=== PATIENT | female | born 1990 | race Caucasian/White ===

== ENCOUNTER 2021-09-12 15:17 | Outpatient (CLI) | payer OTHER, SELFPAY ==
[2021-09-12 16:37] LABS: Basophils Percent Auto 0.3 % (0.2-1.2); Eosinophils Absolute Auto 0.1 K/mm3 (0-0.3); Eosinophils Percent Auto 1.3 % (0-4.4); Hematocrit 32.9 % (37.0-47.0); Hemoglobin 11.1 g/dL (12.0-15.0); Lymphocytes Absolute Auto 1.32 K/mm3 (0.9-3.2); Lymphocytes Percent Auto 13.5 % (18.3-44.2); Mean Corpuscular HGB Conc 33.7 g/dl (32-36); Mean Corpuscular Hemoglobin 33.7 pg (26-34); Mean Platelet Volume 8.5 fl (7.4-10.4); Monocytes Absolute Auto 0.6 K/mm3 (0.1-0.6); Neutrophils Absolute Auto 7.6 K/mm3 (1.3-6.7); Neutrophils Percent Auto 77.9 % (45.5-73.1); Platelet Count Result 218 k/mm3 (150-375); Red Blood Count 3.29 M/mm3 (4.2-5.4); White Blood Count 9.8 K/mm3 (4.5-10.0)
[2021-09-12 16:48] LABS: Glucose 1 Hour PP 50gm Dose 136 mg/dL
[2021-09-12 17:30] LABS: HIV 1/2 Ab P24 Ag Result Negative (Negative)
[2021-09-13] MEDS: RHO(D) IMMUNE GLOBULIN 300 MCG/2 ML SYRINGE IM (18:51)
== END 2021-09-12 15:18 | disposition home or self-care (01) ==
PROVIDERS: Visit Provider Obstetrics & Gynecology
DX: Z34.93 Encounter for supervision of normal pregnancy, unspecified, third trimester (principal); Z3A.00 Weeks of gestation of pregnancy not specified
CPT/HCPCS: 36415; 82947; 85025; 85461; 86703; 90384; 96372; G0432; J2790

== ENCOUNTER 2021-09-16 07:12 | Outpatient (CLI) | payer OTHER, SELFPAY ==
[2021-09-16 07:34] LABS: Glucose Fasting Gestational 85 mg/dL (>/=95)
[2021-09-16 08:55] LABS: Glucose 1 Hour Gest 127 mg/dL (>/=180)
[2021-09-16 10:11] LABS: Glucose 2 Hour Gest 113 mg/dL (>/= 155)
[2021-09-16 11:06] LABS: Glucose 3 Hour Gest 109 mg/dL (>/=140)
== END 2021-09-16 07:13 | disposition home or self-care (01) ==
LOC: ANHLAB 07:13
PROVIDERS: Visit Provider Obstetrics & Gynecology
DX: R73.09 Other abnormal glucose (principal)
CPT/HCPCS: 36415; 82951; 82952

== ENCOUNTER 2021-11-07 07:02 | Outpatient (CLI) | payer OTHER, SELFPAY ==
[2021-11-07 07:28] LABS: Basophils Absolute Auto 0.1 K/mm3 (0.0-0.1); Basophils Percent Auto 0.6 % (0.2-1.2); Eosinophils Absolute Auto 0.1 K/mm3 (0-0.3); Eosinophils Percent Auto 1.4 % (0-4.4); Hematocrit 32.4 % (37.0-47.0); Hemoglobin 11.2 g/dL (12.0-15.0); Immature Granulocyte Absolute 0.28 K/mm3 (0.00-0.031); Lymphocytes Absolute Auto 1.53 K/mm3 (0.9-3.2); Lymphocytes Percent Auto 16.4 % (18.3-44.2); Mean Corpuscular HGB Conc 34.6 g/dl (32-36); Mean Corpuscular Hemoglobin 33.9 pg (26-34); Mean Corpuscular Volume 98.2 fl (80-100); Mean Platelet Volume 8.8 fl (7.4-10.4); Monocytes Absolute Auto 0.8 K/mm3 (0.1-0.6); Monocytes Percent Auto 8.4 % (2.6-8.5); Neutrophils Absolute Auto 6.5 K/mm3 (1.3-6.7); Neutrophils Percent Auto 70.2 % (45.5-73.1); Platelet Count Result 163 k/mm3 (150-375); White Blood Count 9.3 K/mm3 (4.5-10.0)
[2021-11-07 07:39] LABS: Creatinine Urine 97.5 mg/dL; Total Protein Urine Random 11 mg/dL
[2021-11-07 07:43] LABS: Alanine Aminotransferase 12 U/L (6-35); Albumin Level 3.3 g/dL (3.5-5.1); Alkaline Phosphatase 117 U/L (38-126); Anion Gap 4 mmol/L (8-16); Aspartate Amino Transferase 22 U/L (14-36); Bilirubin,Total 0.4 mg/dL (0.2-1.3); Blood Urea Nitrogen 6 mg/dL (7-17); Carbon Dioxide 25 mmol/L (22-30); Chloride 106 mmol/L (98-107); Estimated Glomerular Filt Rate > 60; Glucose 83 mg/dL (65-110); Lactate Dehydrogenase 388 U/L (313-618); Potassium 3.8 mmol/L (3.4-5.0); Sodium 135 mmol/L (137-145); Uric Acid 3.9 mg/dL (2.5-7.5)
== END 2021-11-07 07:03 | disposition home or self-care (01) ==
LOC: ANHLAB 07:04
PROVIDERS: Visit Provider Obstetrics & Gynecology
DX: Z34.90 Encounter for supervision of normal pregnancy, unspecified, unspecified trimester (principal); H53.9 Unspecified visual disturbance; Z3A.00 Weeks of gestation of pregnancy not specified
CPT/HCPCS: 36415; 80053; 81050; 82570; 83615; 84156; 84550; 85025

== ENCOUNTER 2021-11-15 12:37 | Outpatient (CLI) | payer OTHER, SELFPAY ==
--- NOTE | ~2021-11-15 | US_ITS ---
EXAMINATION: US OB follow up DATE: 11/15/2021 13:09 INDICATION: Uterine size, date discrepancy. TECHNIQUE: Real-time ultrasound of the pelvis was performed. COMPARISON: 09/19/2021. FINDINGS: There is a single living fetus in vertex presentation. The placenta is anterior. heart rate is 128 beats per minute (bpm). cardiac activity and movement are noted. The amniotic fluid index is 8.9 cm (5th percentile 7.5 cm, 95th percentile 24.4 cm). The following biometric data were obtained: Biparietal diameter (BPD): 9.8 cm; head circumference (HC): 34.9 cm; abdominal circumference (AC): 37 .0 cm; femur length (FL): 7.6 cm. Estimated weight is 4091 g +/- 613.7 g, which correlates with the 97 percentile when 12/03/2021 i s used as estimated date of delivery. As single measurements, these parameters are each equal to the following estimated gestational ages w ith ranges of +/- 2 standard deviations: BPD: 40 weeks 1 days ( 37 weeks 0 days - 43 weeks 3 days). HC: 40 weeks 4 days ( 37 weeks 6 days - 43 weeks 2 days). AC: 41 weeks 0 days ( 38 weeks 0 days - 44 weeks 0 days). FL: 39 weeks 0 days ( 35 weeks 6 days - 42 weeks 1 days). estimated gestational age based solely on measurements from this exam is 40 weeks 1 days +/- 2 weeks 6 days. Two week discrepancy between AC and FL, FL/AC is 20.60 with a range of 20-24. Greater than one week d iscrepancy between AC and the HC and BPD measurements. FL/HC is 21.8 with a range of 20.8-22.6. FL/BP D is 77.8, range not given. IMPRESSION: 1. Single living fetus in vertex presentation. 2. Estimated weight 4091 g, +/- 613.7 g, which correlates with the 97th percentile when is used as an estimated date of delivery. 3. Two week discrepancy between AC and FL (FL measuring small), FL/AC is 20.60 with a range of 20-24. FL/HC ratio also within normal range. Reviewed, dictated and finalized at location K. IMPRESSION: 1. Single living fetus in vertex presentation. 2. Estimated weight 4091 g, +/- 613.7 g, which correlates with the 97th p ercentile when 12/03/2021 is used as an estimated date of delivery. 3. Two week discrepancy between AC and FL (FL measuring small), FL/AC is 20.60 with a range of 20-24. FL/HC ratio also within normal range.
== END 2021-11-15 12:38 | disposition home or self-care (01) ==
PROVIDERS: PCP Registered Nurse; Visit Provider Obstetrics & Gynecology
DX: O26.843 Uterine size-date discrepancy, third trimester (principal); Z3A.40 40 weeks gestation of pregnancy
CPT/HCPCS: 76816

== ENCOUNTER 2021-11-19 09:11 | Inpatient (IN) | payer OTHER, SELFPAY ==
[2021-11-19] VITALS (150 sets, daily range): BP systolic 107–140; BP diastolic 57–94; PULSE 61–109; TEMP 36.4–37.1; O2SAT 99–100; BMI 24.9
[2021-11-19 10:50] LABS: Basophils Percent Auto 0.4 % (0.2-1.2); Eosinophils Percent Auto 0.3 % (0-4.4); Hematocrit 34.4 % (37.0-47.0); Hemoglobin 11.5 g/dL (12.0-15.0); Immature Granulocyte Absolute 0.16 K/mm3 (0.00-0.031); Immature Granulocyte Percent A 1.5 % (0-0.5); Lymphocytes Absolute Auto 1.09 K/mm3 (0.9-3.2); Lymphocytes Percent Auto 10.3 % (18.3-44.2); Mean Corpuscular HGB Conc 33.4 g/dl (32-36); Mean Corpuscular Hemoglobin 33.2 pg (26-34); Mean Corpuscular Volume 99.4 fl (80-100); Monocytes Absolute Auto 0.6 K/mm3 (0.1-0.6); Monocytes Percent Auto 5.9 % (2.6-8.5); Neutrophils Absolute Auto 8.6 K/mm3 (1.3-6.7); Neutrophils Percent Auto 81.6 % (45.5-73.1); Platelet Count Result 156 k/mm3 (150-375); Red Blood Count 3.46 M/mm3 (4.2-5.4); White Blood Count 10.6 K/mm3 (4.5-10.0)
--- NOTE | 2021-11-19 10:52 | LDADM ---
This patient, Mimi Randall, was admitted to Labor/Delivery/Recovery 108 on 11/19/21 at 09:11. Plans for labor, pain management and were discussed with patient. Patient/family oriented to hospital policies and general routines including ID bracelet, bed and alarms, visiting hours, pain management, procedures, bathroom and other care routines, personal items, smoking policy, room service/diet and guest tray routines, infant security routines, and visiting hours. Patient/Family are encouraged to report perceived risks to care and to ask questions if they do not understand what they are told or what they should do. See OBIX for further documentation.
--- NOTE | 2021-11-19 11:01 | WPDOBADMIT ---
Obstetrics - Admit Note Admission Note: record reviewed. No pertinent additions to the history and/or any subsequent changes in the physical findings that are not consistent with the expected course of the were found. Additions to the history and/or subsequent changes in the physical findings follow. None.Here with SROM not in labor. Cervix per RN is 3/50/-2. recalled last delivery being difficult and thought there was a shoulder dystocia. Upon further discussion, the head was not delivered when the father was concerned. Prior 8#12 oz delivery and patient states she pushed about 30 minutes. U/s done 4 days ago showed EFW at 4091g (9#)+/- 650 g. Discussed delivery with couple and will plan to proceed with labor. Will augment if not in labor by 6 hours. Plans epidural. FHTs category I
[2021-11-19] MEDS: LACTATED RINGERS 1,000 ML 125 ML IV CONT ×3 (13:25→23:49)
[2021-11-19] MEDS: OXYTOCIN 30 UNITS/NS 500 ML 30 UNITS/500 ML BAG IV CONT (13:26)
--- NOTE | 2021-11-19 16:30 | WPDANESEPP ---
Anes - Eval Pre Procedure Procedure: labor epidural Date/Time: 11/19/21 16:30 Preop Diagnosis: labor pain Pre Op Diagnosis: SROM Patient Data Age: 30 Gender: F Height: 1.68 m Weight: 70 kg Last Vital Signs Temp 36.4 C 11/19/21 14:00 Pulse 81 11/19/21 16:00 BP 128/87 11/19/21 16:00 O2 Del Method Room Air 11/19/21 10:45 Allergies Allergy/AdvReac Type Severity Reaction Status Date / Time No Known Allergies Allergy Unknown Verified 08/18/21 14:48 Home Medications Medication Instructions Recorded Confirmed Type aspirin 81 mg tablet,delayed 81 mg PO DAILY #90 tabs 06/14/21 11/19/21 Rx release (Adult Low Dose Aspirin) prenat.vits,debra,jjx-[id number]-phppq 1 tablet PO DAILY 06/14/21 11/19/21 History ferrous sulfate 325 mg (65 mg 325 mg PO DAILY 11/19/21 11/19/21 History iron) tablet Laboratory Tests 11/19/21 11/19/21 11/19/21 10:35 10:35 10:35 WBC 10.6 K/mm3 H K/mm3 (4.5-10.0) RBC 3.46 M/mm3 L M/mm3 (4.2-5.4) Hgb 11.5 g/dL L g/dL (12.0-15.0) Hct 34.4 % L % (37.0-47.0) MCV 99.4 fl fl (80-100) MCH 33.2 pg pg (26-34) MCHC 33.4 g/dl g/dl (32-36) RDW 13.0 % % (11.5-14.5) Plt Count 156 k/mm3 k/mm3 (150-375) MPV 9.0 fl fl (7.4-10.4) Immature Gran % (Auto) 1.5 % H % (0-0.5) Neut % (Auto) 81.6 % H % (45.5-73.1) Lymph % (Auto) 10.3 % L % (18.3-44.2) [place] % (Auto) 5.9 % % (2.6-8.5) Eos % (Auto) 0.3 % % (0-4.4) Baso % (Auto) 0.4 % % (0.2-1.2) Lymph # (Auto) 1.09 K/mm3 K/mm3 (0.9-3.2) [place] # (Auto) 0.6 K/mm3 K/mm3 (0.1-0.6) Eos # (Auto) 0.0 K/mm3 K/mm3 (0-0.3) Baso # (Auto) 0.0 K/mm3 K/mm3 (0.0-0.1) Abs Immat Gran (auto) 0.16 K/mm3 H K/mm3 (0.00-0.031) Absolute Neuts (auto) 8.6 K/mm3 H K/mm3 (1.3-6.7) Absolute Nucleated RBC 0.0 K/mm3 K/mm3 (0.0-0.012) Nucleated RBC % 0.0 % % (0.0-0.2) RPR Pending Blood Type A Negative Antibody Screen Positive Antibody Identification Pending Antigen Identification Pending DENNIS, IgG Interpret Not Performed DENNIS, Poly Interpret Negative DENNIS, Complement Interp Not Performed Patient hx anesthesia problems: none Family hx anesthesia problems: none Results Review: All pre-operative results and documents have been reviewed as part of the pre-operative evaluation. FORMERLY [facility] Past Medical History Medical History Hypertension affecting Social History Social History Smoking status: Never smoker Alcohol intake: never Substance use: never Gender identity (if verbalized by the patient): Female Sexual Orientation (if Verbalized by the Patient): Straight or Heterosexual Spiritual care concerns: No Exam Day of Procedure 11/19/21 16:30 Patient weight: normal Lungs: normal air movement Neurological: alert and oriented
[2021-11-20] VITALS (18 sets, daily range): BP systolic 97–133; BP diastolic 69–90; PULSE 77–97; RESP 16–18; TEMP 36.5–37.4; O2SAT 100
--- NOTE | 2021-11-20 00:22 | PM.OBPRVD ---
OB - Delivery Note Procedure Delivery date: 11/20/21 Procedure: Delivery augmentation: Pitocin Delivery monitor: External FHT and External Uterine Route of delivery: Laceration Description: None Specimen: No Quantitative Blood Loss (ml): 100 Anesthesia type: Epidural Disposition: Floor Narrative: In the vagina, to right side, there is a 3 cm dilated smooth lined canal approximately 5 cm deep. Does not communicate with main part of vagina and cones down and does not appear to be open at the end. It has the appearance of a blind ended vaginal septum. [place] Baby Date of : 11/20/21 Weeks of gestation at delivery: 37 gender: Male Weight (pounds): 8 Weight (ounces): 8 presentation: vertex position: Right Occiput Anterior Placenta delivery description: Spontaneous Cord Vessel Description: 3 Vessels score one minute: 9 score five minutes: 9
[2021-11-20] MEDS: OXYTOCIN 30 UNITS/NS 500 ML 30 UNITS/500 ML BAG 125 UNITS IV CONT (00:49)
[2021-11-20] MEDS: WITCH HAZEL 40 PADS 1 PAD TOPICAL (02:38)
[2021-11-20] MEDS: BENZOCAINE 20% AER SPR (*SP) 56 GM CAN 1 SPRAY TOPICAL (02:38)
--- NOTE | 2021-11-20 02:55 | PC.NURSE ---
Patient transferred to post room #279 per wheelchair from labor and delivery. Support person present. Oriented to unit, room, information board, rooming in, admission packet and security measures. Patient verbalizes understanding.
[2021-11-20] MEDS: IBUPROFEN 600 MG TABLET PO ×3 (04:49→19:45)
[2021-11-21 00:35] VITALS: BP 111/72; PULSE 79; RESP 16; TEMP 37.4; O2SAT 100
[2021-11-21 05:19] LABS: Hematocrit 34.2 % (37.0-47.0); Hemoglobin 11.3 g/dL (12.0-15.0)
--- NOTE | 2021-11-21 07:32 | PM.OBPNVD ---
OB - PN: Subj Subjective Date/time seen: 11/21/21 07:32 Narrative: PPD#2 Mimi reports doing well today. Her bleeding is light. Her pain is controlled. She is tolerating regular diet, voiding, passing gas, and ambulating without issues. She is breast feeding. She would like her son circumcised. She would like to go home today. OB - PN: Obj Data Labs CBC & Chem 7: 11/21/21 04:35 Labs: Laboratory Results - last 24 hr 11/21/21 04:35 Hgb 11.3 L Hct 34.2 L OB - PN A/P Assessment and Plan (1) Normal vaginal delivery: Code(s): O80 - Encounter for full-term uncomplicated delivery Status: Acute (2) Vaginal septum: Code(s): Q52.10 - Doubling of vagina, unspecified Status: Acute Plan day: 2 Plan: routine care and discharge home Comments: - Pelvic rest; take meds as prescribed - ER return precautions: fever, n/v/abd pain, bleeding, HTN Time Spent With Patient Time: Total time spent is greater than 50% in coordination of care (as documented) at patient's floor/unit and/or counseling patient: Review of Systems Constitutional: Constitutional: Denies chills, Denies fever(s) and Denies headache(s) Eyes: Eyes: Denies change in vision ENT: Denies dizziness and Denies headache(s) Cardiovascular: Cardiovascular: Denies chest pain, Denies palpitations and Denies dyspnea Respiratory: Respiratory: Denies cough and Denies dyspnea Gastrointestinal: Gastrointestinal: Denies nausea and Denies vomiting Neurologic: Denies dizziness and Denies headache(s) Endocrine: Endocrine: Denies palpitations Exam Const: General: cooperative, comfortable and no acute distress Orientation/consciousness: patient oriented x3 Resp: Effort & Inspection: normal respiratory effort Auscultation: clear to auscultation bilaterally Cardio: Rate: regular rate GI: Inspection: non-distended GI Palp: No abdominal tenderness and Yes Soft to palpation Auscultation: normal bowel sounds : Other: fundus firm Skin: General skin exam: normal color Neuro: General: patient oriented x3 Extrem: General: normal to inspection Psych: Appearance: grossly normal Affect: normal affect Attitude: cooperative
[2021-11-21 08:00] VITALS: BP 124/78; PULSE 91; RESP 18; TEMP 37; O2SAT 100
--- NOTE | 2021-11-21 09:17 | PC.NURSE ---
[id number] Introductions were made, then consulted with patient to assess needs related to . Mother with no previous history led the conversation with her experience feeding her infant so far. Mother works well with her . Encouraged understanding of the benefits of skin to skin (unwrapping and placing vertically on her chest), responsive feeding and how to watch for early feeding signs, frequency of feeding on demand about every 8-12 times in 24 hours (every 2-3 hours), milk production, duration of feeding, signs of adequate intake/output and how to record on the feeding sheet. Reviewed positioning and ear, shoulder, hip alignment, supporting the breast, asymmetrical latch (off-center), and leading with the chin with a big open side gape. latched optimally to the right breast in cross cradle position. Education given to mother of how to visualize suck/swallow ratios and drinking at the breast. Infant was able to maintain latch without discomfort to mother. Nipple care reviewed with optimal latch and good positioning. self-detached after 10 min, then was offered the left breast in cross cradle position. Infant self-detached after 12 min. Nipples were not misshaped and mother denied any pain with . Reminding mother of comfort measures of healing with a warm and wet washcloth for comfort for engorgement and how to prevent it, to rinse breast, then leave open to air-dry as needed. Reviewed good handwashing when or touching the breast/nipples to prevent infection. has had appropriate feedings in the last 24 hours meets the outcomes for weight, output and jaundice at this time. Mother states she is confident to continue effectively her at home, when to call for assistance and denies any additional assistance or education at this time. Reinforced understanding of milk production, transition of milk, signs of adequate intake, prevention/relief of engorgement, responsive after visualizing feeding cues, the different methods of stimulating to breastfeed 2-3 hours after the start of the last feeding, community resources, medication information reviewed per [employer] and when to call a provider using the resource of the mom and baby guide/[facility] website. Resources used to facilitate learning were used with the mom and baby guide. Mother voiced understanding of responsive feedings, stimulating with skin to skin, hand expressed colostrum, touch, talking to to encourage if it has been 2 -3 hours since the start of the last , to call if does not latch or there is discomfort with . Reported to the primary RN.
[2021-11-21] MEDS: IBUPROFEN 600 MG TABLET PO (10:08)
[2021-11-21] MEDS: MULTIVIT/MIN/PREN/FOL AC/IRON TABLET 1 TAB PO (10:08)
[2021-11-21 14:40] LABS: Rapid Plasma Reagin Non-Reactive (NonReactive)
--- NOTE | 2021-11-23 07:45 | PM.OBDSVD ---
DS: Admitting Diagnosis Discharge Date 11/21/21 Admitting Diagnosis Rupture of membranes Labor DS: Discharge Diagnosis Discharge Diagnosis (1) Normal vaginal delivery: Code(s): O80 - Encounter for full-term uncomplicated delivery Status: Acute (2) Vaginal septum: Code(s): Q52.10 - Doubling of vagina, unspecified Status: Acute OB - DS: Summary OB Procedures : Ultrasound OB Procedures Intrapartum: Spontaneous Vag Delivery OB Procedures: : None Peripartum Data Delivery Method: Natural Vaginal 1: Gender: Male Disposition of : home Status at Discharge Functional status at discharge: independent ambulation Overall status at discharge: patient is back to baseline Time Spent with Patient Time attestation: Total time spent providing and/or coordinating discharge services: Time spent: Less than 30 minutes Exam Const: General: cooperative, comfortable and no acute distress Orientation/consciousness: patient oriented x3 Resp: Effort & Inspection: normal respiratory effort Auscultation: clear to auscultation bilaterally Cardio: Rate: regular rate GI: Inspection: non-distended GI Palp: No abdominal tenderness and Yes Soft to palpation Auscultation: normal bowel sounds : Other: fundus firm Skin: General skin exam: normal color Neuro: General: patient oriented x3 Extrem: General: normal to inspection Psych: Appearance: grossly normal Affect: normal affect Attitude: cooperative Discharge Plan Discharge Attending physician on discharge: Coral Gilbert Consulting providers: Tanya Randall Discharging Clinician: Coral Gilbert Anticipated Discharge Date/Time: 11/21/21 11:00 Patient Disposition: Home, Self-Care Activity: pelvic rest Diet: regular Discharge Instructions: Education: Mom and Baby Guide Given to: Mother Follow-Up: Call your delivering provider's office for an appointment to be seen in: 4 Weeks Mom and baby should come to the [facility] for the follow-up appointment. Appointment Date/Time: November 23, 2021 at 11:00 am What to expect at your follow-up visit: Physical Assessment Call [phone] if you are unable to keep your appointment time. BREAST CARE: * Wear a snug supportive bra. * For engorgement discomfort: Breast Feeding: * Apply warm moist washcloths * Express milk as needed to relieve engorgement * Wear loose clothing * For sore nipples: * Identify correct latch-on * Apply warm moist washcloths before and after nursing * Air dry nipples after nursing * May apply [place] cream to nipples PERINEAL CARE: * Until bleeding stops, use your luiz bottle after urinating * Change your pad frequently throughout the day * You may take sitz baths several times a day (fill your bathtub with warm water and soak for 20 minutes.) Do NOT bathe in the water * No tub baths until seen by your physician - You may shower ACTIVITY: * Rest as much as possible. * Do not exercise or lift anything heavier than your baby (such as laundry or other children.) * Avoid stairs or driving as much as possible. * Do not put anything into the vagina. No douching, tampons, or sexual activity until seen by physician. NOTIFY PHYSICIAN IF YOU HAVE ANY QUESTIONS OR IF ANY OF THE FOLLOWING SYMPTOMS OCCUR: * If your perineum becomes red, swollen, or more painful than what you have experienced in the hospital. * If your vaginal bleeding becomes foul smelling. * If your vaginal bleeding becomes more heavy than a period or if your bleeding changes from pink to bright red. However, you may pass an occasional walnut-sized clot once or twice for the first week . * If you experience a sharp, shooting pain in you calves. * If you discover a hard, reddened area on your breast or if you experience flu-like symptoms. DIET: * Eat regular,
[2021-11-23 10:58] VITALS: BP 125/87; PULSE 88; RESP 20; TEMP 36.9; O2SAT 100
== END 2021-11-21 11:45 | disposition home or self-care (01) | DRG 560 ==
LOC: ANHLDR 09:44 → ANHOB2 11-20 03:14
PROVIDERS: Admitting Provider Obstetrics & Gynecology Gynecology; PCP Registered Nurse; Visit Provider Obstetrics & Gynecology
DX: O34.63 Maternal care for abnormality of vagina, third trimester (principal); Z37.0 Single live birth; Z3A.38 38 weeks gestation of pregnancy
CPT/HCPCS: 36415; 84112; 85014; 85018; 85025; 86592; 86850; 86880; 86900; 86901; 86902; A9270; J2590; J2795; J7120

== ENCOUNTER 2022-02-27 01:34 | Day surgery (SDC) | payer OTHER, SELFPAY ==
[2022-02-21 09:29] VITALS: BMI 21.2
--- NOTE | 2022-02-21 09:38 | SUR.PREOP ---
Report to the Outpatient Waiting Room, entrance under the green pavilion located off [facility], at time 1000 on date 02/27/22. OR Time: 1200. Time changes happen often and if your time is changed the preop area will call you the afternoon before. - You and your visitor will be asked to self-screen and do not enter if you have any COVID symptoms. - Only one visitor and NO children visitors are allowed at this time. - The patient visitor is requested to leave or wait in car when not with patient due to restrictions. - A mask is required within the hospital. Patients may have clear liquids (water, carbonated beverages, clear teas, apple juice) until 3 hours prior to surgery with a maximum of 20 ounces. - No food from midnight until time of surgery no fluids after - Infants may have breast milk until 4 hours before surgery, formula 6 hours prior to surgery. - Children will be allowed to drink immediately following surgery. If applicable, please bring a bottle or sippy cup to assist with drinking. Juice, water, soda, and popsicles are readily available. For infants on formula, please bring formula the day of surgery. Pacifiers are allowed. Take the following medications with a SIP of water the morning of surgery: n/a Medications to discontinue per physician prenatal vitamin for 3 days prior Date to take last dose Please no make-up, nail croatian, hairspray, perfume, deodorant, or body powder the day of surgery. No jewelry (including any body piercings) or valuables the day of surgery, leave them at home. Please take a shower or bath the night before, or the morning of, surgery with an antibacterial soap. Wear comfortable, loose fitting clothing. Children are encouraged to wear pajamas. use Hibiclens the morning of procedure as directed - Jewelry must be removed prior to entering the operating room. Rings and piercings that are not removed may be cut off. - The hospital will not accept responsibility for valuables. - Please leave all valuables, including medications, at home the day of surgery. If you are going home after surgery, a licensed helper/driver must drive you home. - NO public transportation without another adult. - We recommend that an adult stay with you for 24 hours following discharge. - We also recommend that you do not drive, make important decision, drink alcoholic beverages, or take any drugs that were not prescribed by your health care provider for at least 24 hours after your discharge time. For Pediatric surgeries, we recommend two adults accompany the child home (only one inside the building at this time). Follow any additional instructions given to you from your surgeon. If you or anyone in your household have experienced Covid symptoms in the past week, please notify your surgeon or the nurse liaison at the phone number below for possible testing. Telephone instructions given to patient and asked if any additional questions and then verbalized understanding. Patient advised to call surgeon office or pre surgery nurse liaison [phone] if any additional questions.
--- NOTE | 2022-02-26 19:12 | PM.IMHP ---
H&P: HPI History of Present Illness Date/Time: 02/26/22 19:12 Chief Complaint: desires sterilization Narrative: Mimi is a 31yo [id number] who presents for scheduled surgery. She had a on 11/20/21. She desires to proceed with permanent sterilization. She [place] on 09[place]15/21. She also has an umbilical hernia that will be repaired by Dr. Godfrey. Review of Systems Review of Systems: All systems reviewed & are unremarkable except as noted in HPI and below PMFSH Past Medical History Medical History Hypertension affecting Social History Social History Smoking status: Never smoker Alcohol intake: never Substance use: never Gender identity (if verbalized by the patient): Female Sexual Orientation (if Verbalized by the Patient): Straight or Heterosexual Spiritual care concerns: No Meds Home Medications and Allergies Home Medications Medication Instructions Recorded Confirmed Type prenat.vits,debra,cly-rrhb-nrkfc 1 tablet PO DAILY 06/14/21 02/21/22 History ferrous sulfate 325 mg (65 mg 325 mg PO DAILY 11/19/21 02/21/22 History iron) tablet Allergies Allergy/AdvReac Type Severity Reaction Status Date / Time No Known Allergies Allergy Unknown Verified 01/20/22 08:16 Exam Const: General: cooperative, healthy appearing, comfortable and no acute distress Resp: Effort & Inspection: normal respiratory effort Cardio: Rate: regular rate GI: Inspection: normal to inspection GI Palp: No abdominal tenderness and Yes Soft to palpation : Other: deferred to OR Skin: General skin exam: normal color Neuro: General: patient oriented x3 Extrem: General: normal to inspection Psych: Appearance: grossly normal Affect: normal affect Attitude: cooperative Assessment and Plan Assessment and plan (1) Encounter for sterilization: Code(s): Z30.2 - Encounter for sterilization Status: Acute (2) Umbilical hernia: Code(s): K42.9 - Umbilical hernia without obstruction or gangrene Status: Acute Plan - All BC options discussed; pt desires to proceed with permanent sterilization via laparoscopic bilateral tubal ligation - risks and benefits explained in detail - Dr. Godfrey will then perform an umbilical hernia repair; abx ppx per his recommendations
[2022-02-27] VITALS (8 sets, daily range): BP systolic 98–128; BP diastolic 59–84; PULSE 57–84; RESP 10–16; TEMP 36.6–36.7; O2SAT 99–100
[2022-02-27] MEDS: LACTATED RINGERS 1,000 ML 30 ML IV CONT (10:48)
[2022-02-27] MEDS: ACETAMINOPHEN 500 MG TABLET 1000 MG PO (10:50)
[2022-02-27] MEDS: KETOROLAC 15 MG/ML VIAL (*BKC) IV PUSH (10:50)
--- NOTE | 2022-02-27 11:35 | WPDHPUPDATE1 ---
History and Physical Update Update Date/Time: 02/27/22 11:35 History and Physical has been reviewed, including an updated exam of the patient. There are NO changes in the patient's condition. Risks, benefits, and alternatives have been discussed and questions answered. Patient agrees to proceed with procedure.
--- NOTE | 2022-02-27 11:43 | PM.IMHP ---
H&P: HPI History of Present Illness Date/Time: 02/27/22 11:43 Chief Complaint: Umbilical hernia Narrative: 31 yo woman presents for umbilical hernia repair and tubal ligation. She reports no changes since last seen in office. Review of Systems Review of Systems: All systems reviewed & are unremarkable except as noted in HPI and below Constitutional: Constitutional: Denies chills, Denies fever(s), Denies headache(s) and Denies weight loss Eyes: Eyes: Denies change in vision ENT: Denies dizziness, Denies headache(s), Denies neck mass and Denies throat swelling Cardiovascular: Cardiovascular: Denies chest pain, Denies lightheadedness and Denies dyspnea Respiratory: Respiratory: Denies cough, Denies dyspnea and Denies wheezing Gastrointestinal: Gastrointestinal: Denies abdominal pain, Denies change in bowel habits, Denies nausea and Denies vomiting Genitourinary: Genitourinary: Denies hematuria and Denies dysuria Musculoskeletal: Musculoskeletal: Reports as per HPI Integumentary/Breasts: Skin/Breast: Reports as per HPI Neurologic: Denies dizziness and Denies headache(s) Allergic/Immunologic: Allergic/Immunologic: Denies throat swelling and Denies wheezing [facility] Past Medical History Medical History Hypertension affecting Social History Social History Smoking status: Never smoker Alcohol intake: never Substance use: never Living arrangements: with family Gender identity (if verbalized by the patient): Female Sexual Orientation (if Verbalized by the Patient): Straight or Heterosexual Spiritual care concerns: No Meds Home Medications and Allergies Home Medications Medication Instructions Recorded Confirmed Type prenat.vits,debra,qzo-twzo-vsucf 1 tablet PO DAILY 06/14/21 02/27/22 History ferrous sulfate 325 mg (65 mg 325 mg PO DAILY 11/19/21 02/27/22 History iron) tablet acetaminophen 500 mg tablet 1,000 mg PO Q8H PRN pain #60 tabs 02/27/22 Rx docusate sodium 100 mg capsule 100 mg PO BID #40 caps 02/27/22 Rx (Colace) ibuprofen 800 mg tablet 800 mg PO TID #30 tabs 02/27/22 Rx oxycodone 5 mg tablet 5 mg PO Q4H PRN pain 3 days #15 02/27/22 Rx tabs Allergies Allergy/AdvReac Type Severity Reaction Status Date / Time No Known Allergies Allergy Unknown Verified 02/27/22 10:38 Vital Signs Vital Signs - 24 hr 02/27/22 10:28 Temperature 36.7 C Pulse Rate 84 Respiratory Rate 16 Blood Pressure 115/64 Pulse Oximetry 100 Oxygen Delivery Room Air Exam Const: General: no acute distress and alert Orientation/consciousness: patient oriented x3 HENMT: Head: normocephalic and atraumatic Ears: hearing grossly normal bilaterally General nose exam: Normal nares present Mouth: Yes Normal oral and palatal mucosa present Eyes: Periorbital: periorbital findings normal Sclera: sclerae normal EOM: EOMs intact bilaterally Neck: Neck: normal visual inspection, no lymphadenopathy and trachea midline Chest: Chest palpation & inspection: normal inspection of the chest Resp: Effort & Inspection: normal respiratory effort Auscultation: clear to auscultation bilaterally Cardio: Jugular venous distension: no JVD Rate: regular rate Rhythm: regular rhythm Heart sounds: S1 normal heart sound present and S2 normal heart sound present Peripheral pulses: Peripheral pulses 2+ throughout GI: Inspection: normal to inspection GI Palp: Yes Soft to palpation, No Tenderness to palpation present (GI), No Guarding due to palpation present (GI), Yes Hernia present (umbilical hernia) and No Rebound tenderness present Percussion: Yes normal to percussion Auscultation: normal bowel sounds : General: Yes no CVA tenderness Back/Spine/Pelvis: Back: no CVA tenderness Neuro: General: patient oriented x3, no focal motor deficits and CN's II-XI intact bilaterally Cognition (N
--- NOTE | 2022-02-27 11:47 | WPDHPUPDATE1 ---
History and Physical Update Update Date/Time: 02/27/22 11:47 History and Physical has been reviewed, including an updated exam of the patient. There are NO changes in the patient's condition. Risks, benefits, and alternatives have been discussed and questions answered. Patient agrees to proceed with procedure.
--- NOTE | 2022-02-27 11:54 | WPDANESEPPF ---
Anes - Initial Pre Proc Eval Procedure: Operation Date: 02/27/22 12:00 Proposed Procedures p Umbilical Hernia Repair with Possible Mesh - Kip Godfrey DO s Laparoscopic Bilateral Tubal Ligation - Coral Gilbert MD Date/Time: 02/27/22 11:54 Surgeon: Kip Godfrey DO Pre Op Diagnosis: Umb Hernia, sterilization Patient Data Age: 31 Gender: F Height: 1.65 m Weight: 58.9 kg Last Vital Signs Temp 36.7 C 02/27/22 10:28 Pulse 84 02/27/22 10:28 Resp 16 02/27/22 10:28 BP 115/64 02/27/22 10:28 Pulse Ox 100 02/27/22 10:28 O2 Del Method Room Air 02/27/22 10:28 Allergies Allergy/AdvReac Type Severity Reaction Status Date / Time No Known Allergies Allergy Unknown Verified 02/27/22 10:38 Home Medications Medication Instructions Recorded Confirmed Type prenat.vits,debra,edj-dxbb-urjqm 1 tablet PO DAILY 06/14/21 02/27/22 History ferrous sulfate 325 mg (65 mg 325 mg PO DAILY 11/19/21 02/27/22 History iron) tablet acetaminophen 500 mg tablet 1,000 mg PO Q8H PRN pain #60 tabs 02/27/22 Rx docusate sodium 100 mg capsule 100 mg PO BID #40 caps 02/27/22 Rx (Colace) ibuprofen 800 mg tablet 800 mg PO TID #30 tabs 02/27/22 Rx oxycodone 5 mg tablet 5 mg PO Q4H PRN pain 3 days #15 02/27/22 Rx tabs Patient hx anesthesia problems: none Family hx anesthesia problems: none Results Review: All pre-operative results and documents have been reviewed as part of the pre-operative evaluation. [facility] Past Medical History Medical History Anemia Social History Social History Smoking status: Never smoker Alcohol intake: never Substance use: never Living arrangements: with family Gender identity (if verbalized by the patient): Female Sexual Orientation (if Verbalized by the Patient): Straight or Heterosexual Spiritual care concerns: No Anes - Eval Final PreProcedure Day of Procedure 02/27/22 11:54 Patient weight: normal Heart: regular rate and rhythm Lungs: clear to auscultation Airway: Mallampati scale class II Neurological: alert and oriented Last oral intake: >/= 8 hours ASA classification: II Emergent: no Anesthetic plan: proceed Anesthesia type and monitoring: general ETT and standard monitoring Results Review: All pre-operative results and documents have been reviewed as part of the pre-operative evaluation. Informed Consent: The patient's anesthetic plan and its attendant risks and benefits were discussed with the patient/family/POA. Questions were solicited and answers provided to the satisfaction of the patient/family/POA.
[2022-02-27] MEDS: ceFAZolin 2 GM/D5W 50 ML 2 GM/50 ML BAG IVPB (12:11)
--- NOTE | 2022-02-27 12:54 | P.OP_ITS ---
Procedure Note - Detailed Date of Procedure 02/27/22 Pre-op Diagnosis Umb Hernia, sterilization Post-op Diagnosis Same Procedure Performed Laparoscopic bilateral tubal ligation Surgeon Coral Gilbert MD Medical Management Trainer Vasquez Anesthesia General Findings Uterus sounded to 8cm, normal cervix, Normal fallopian tubes and ovaries. Good hemostasis at end of case. 2 small areas of endometriosis; 1 on the bladder, 1 in the posterior cul-de-sac that was fulgurated. Description of Procedure Mimi was taken to the operating room where she was placed under general endotracheal anesthesia without complications. She was then prepped and draped in the usual sterile fashion in the dorsal lithotomy position with her arms tucked, and a strap over her chest. A time-out was performed and she did receive [address] Godfrey's recommendations for hernia repair. My attention was turned down below, her bladder was drained using straight catheterization. A bivalve speculum was then placed within the vagina where the anterior lip of the cervix was grasped with single-tooth tenaculum. The uterus was sounded. The diagnostic uterine manipulator was placed without complications. My gloves were changed and [facility] A infraumbilical incision was made and a 5 mm trocar was placed under direct visualization without complications. Once intra-abdominal placement was confirmed, the abdomen was insufflated with carbon dioxide gas. The patient was then placed in Trendelenburg and 2 additional 5 mm trocars were placed under direct visualization in the left and right lower quadrants without complications. The uterus was anteverted and the left fallopian tube was grasped. The mesosalpinx was serially clamped, coagulated, and transected and a portion of the fallopian tube was removed using the LigaSure device. The same procedure was then performed on the right side without complications. The pelvis was examined and two endometrial implants were noted, 1 on the bladder which was left alone, and one in the posterior cul-de-sac which was fulgurated using the LigaSure monopolar device. Good hemostasis was noted. All instruments were removed from the abdomen. The insufflation was released as Dr. Godfrey planned to perform an open umbilical hernia repair. Dr. Godfrey then scrubbed in to perform his surgery. Estimated Blood Loss 5 IV Fluids 700 Urine Output 50 Drains No Packing No Pathology Yes (bilateral fallopian tube segments) Complications No immediate complications Condition Stable [facility] Billing Surgery - Charge Forward: Surgery Billing
[2022-02-27] MEDS: BUPIVACAINE/EPINEPHRINE 0.25% 50 ML VIAL INFILTRATE (13:14)
--- NOTE | 2022-02-27 13:26 | P.OP_ITS ---
Procedure Note - Detailed Date of Procedure 02/27/22 Pre-op Diagnosis Umbilical Hernia, sterilization Post-op Diagnosis Same Procedure Performed Umbilical hernia repair Surgeon Kip Godfrey, DO Anesthesia General and Local (0.25% bupivacaine with epinephrine) Indications This is a 31-year-old woman who presented with an umbilical hernia. Noticed a bulge there several years ago and this has gradually increased in size. 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 She wanted to proceed with umbilical hernia repair at the same time as tubal ligation. Discussions were made with the patient about treatment options and decision was made to proceed with umbilical hernia repair with possible mesh. Findings Open umbilical hernia repair was performed. Patient underwent laparoscopic sterilization procedure 1st and then once Dr. Gilbert's portion of the procedure was done I proceeded with the umbilical hernia repair. Patient was found to have a 5 mm umbilical hernia containing preperitoneal fat. The hernia sac was excised and sent to lab for pathology. The hernia was then repaired using 0 Ethibond [id number] sutures. Description of Procedure Procedure as well as risks, benefits, and alternatives were discussed with the patient. Written consent was obtained and placed in chart prior to procedure. Patient was brought back to surgical suite. She was placed supine on operating table. Time-out was done to confirm patient and procedure. She was then intubated by the anesthesia department. She underwent laparoscopic sterilizatio n procedure and then was called in to proceed with umbilical hernia repair. The infraumbilical incision was extended to about 4 cm curvilinear using a 15 blade scalpel. Electrocautery was used for hemostasis and for dissection through the subcutaneous tissue. The hernia sac was identified and carefully dissected free from the umbilical skin using electrocautery. The hernia sac was then excised at the level of the fascia using electrocautery. The hernia defect was measured and was only about 5 mm in size. The hernia defect was then closed using 0 Ethibond [id number] sutures. Total of 3 sutures were placed transversely to approximate the fascia without any tension. I then also placed a vhuspa-gg-vsphw suture at the port site just inferior to the hernia. The repair was inspected and appeared secure. 0.25% bupivacaine with epinephrine was infiltrated locally around the fascia and subcutaneous space. The umbilical skin was then reapproximated to the fascia using 3-0 Vicryl simple interrupted suture. The deep dermis was reapproximated using 3-0 Vicryl inverted interrupted sutures. Skin was approximated using 4-0 Monocryl running subcuticular suture. Exofin glue was then applied on top. The patient was then awakened from anesthesia, extubated, and transferred to recovery. Estimated Blood Loss 5 IV Fluids 700 Urine Output 50 Pathology Yes (Hernia sac) Complications No immediate complications Condition Stable Disposition Same day [facility] Billing Surgery - Charge Forward: Surgery Billing
[2022-02-27] MEDS: ONDANSETRON INJ 4 MG/2 ML VIAL IV PUSH (14:06)
== END 2022-02-27 15:23 | disposition home or self-care (01) ==
PROVIDERS: Obstetrics & Gynecology; PCP Registered Nurse; Visit Provider Surgery
PROC: (CPT 49585; principal; 2022-02-27 12:00)
PROC: (CPT 58671; 2022-02-27 12:00)
DX: Z30.2 Encounter for sterilization (principal); K42.9 Umbilical hernia without obstruction or gangrene; N80.3 Endometriosis of pelvic peritoneum; N80.8 Other endometriosis; D64.9 Anemia, unspecified
CPT/HCPCS: 58670; 58662; 49585; 88302; 88342; A9270; J0690; J1100; J1885; J2250; J2405; J2704; J2710; J3010; J7120

== ENCOUNTER 2022-10-21 11:27 | Emergency (ER) | payer OTHER, SELFPAY ==
[2022-10-21 11:36] VITALS: BP 121/76; PULSE 84; RESP 16; TEMP 37.6; O2SAT 100
--- NOTE | 2022-10-21 11:46 | ED.SKABFB ---
HPI - Skin/Abscess/Foreign Bdy General Chief complaint: Skin/Abscess/Foreign Body Stated complaint: Rash/insect bite; upper right thigh Time Seen by Provider: 10/21/22 11:46 Source: patient Mode of arrival: ambulatory Limitations: no limitations History of Present Illness HPI narrative: 31-year-old female presents with complaint of to red lesions to posterior aspect of right thigh for the past 2-3 days. Reports itching and irritated. initially thought that she had mosquito bites. States she showed her coworkers and concerned her that she may have been bitten by ticks. Patient states she never sought any ticks to her thigh. Has not taking any ygft-jci-pekhhrn medications to treat symptoms. All systems reviewed and negative except as noted above. Related Data Allergies Allergy/AdvReac Type Severity Reaction Status Date / Time No Known Allergies Allergy Unknown Verified 10/21/22 11:35 Review of Systems Review of Systems: CONSTITUTIONAL: Denies fever, chills, or sweats. EYES: Denies visual changes, redness, or discharge. ENT: Denies rhinorrhea, congestion, sore throat, or otalgia. CARDIOVASCULAR: Denies chest pain, palpitations, or edema. RESPIRATORY: Denies cough or dyspnea. GASTROINTESTINAL: Denies abdominal pain, nausea, vomiting, or diarrhea. GENITOURINARY: Denies dysuria or hematuria. SKIN: Denies rash or itching. Reports to red lesions to posterior aspect right thigh. MUSCULOSKELETAL: Denies back pain, joint pain, or myalgia. NEUROLOGIC: Denies headache, numbness, or weakness. PSYCHIATRIC: Denies anxiety or depression. All other systems reviewed are negative, except as documented in HPI. [facility] Past Medical History Medical History Anemia Surgical History Surgical History History of umbilical hernia repair 02/27/22 Social History Social History Smoking status: Never smoker Alcohol intake: never Substance use: never Living arrangements: with family Gender identity (if verbalized by the patient): Female Sexual Orientation (if Verbalized by the Patient): Straight or Heterosexual Spiritual care concerns: No Comments At time of signature, agree with nursing past medical, surgical, social and family history. There is no relevant family history pertinent to the presenting complaint. Exam Narrative: GENERAL: This is a well-nourished, well-developed patient, in no apparent distress. HEAD: normocephalic, atraumatic. EYES: PERRL. Sclera clear/white. Vision is grossly intact. EARS: External ears normal NOSE: External nose normal NECK: Neck supple, non-tender without lymphadenopathy, masses or thyromegaly. CARDIOVASCULAR: Regular rate and rhythm without murmurs, gallops, or rubs. RESPIRATORY: Clear to auscultation. Breath sounds equal bilaterally. No wheezes, rales, or rhonchi. SKIN: warm, Dry, intact with good texture and turgor. two erythematous papules aprrox. 0.5cm diameter with an additional 1cm light pink around papule. no fluctuance or warmth on paplation. NEURO: awake, alert, and oriented to person, place and time. There were no obvious focal neurologic abnormalities. EXTREMITIES: No joint tenderness, effusion, or edema noted. Course Course Level of Care: Express Care Visit Vital Signs Vital signs: Vital Signs Temperature 37.6 C H 10/21/22 11:36 Pulse Rate 84 10/21/22 11:36 Respiratory Rate 16 10/21/22 11:36 Blood Pressure 121/76 10/21/22 11:36 Pulse Oximetry 100 10/21/22 11:36 Oxygen Delivery Room Air 10/21/22 11:36 Temperature 37.6 C H 10/21/22 11:36 Pulse Rate 84 10/21/22 11:36 Respiratory Rate 16 10/21/22 11:36 Blood Pressure 121/76 10/21/22 11:36 Pulse Oximetry 100 10/21/22 11:36 Oxygen Delivery Room Air 10/21/22 11:36 reviewed MDM - Skin/Abscess
== END 2022-10-21 11:56 | disposition home or self-care (01) ==
PROVIDERS: Emergency Provider Nurse Practitioner Family; PCP Registered Nurse
DX: S70.361A Insect bite (nonvenomous), right thigh, initial encounter (principal); W57.XXXA Bitten or stung by nonvenomous insect and other nonvenomous arthropods, initial encounter
CPT/HCPCS: 99213; G0463

== ENCOUNTER 2022-11-04 14:17 | Emergency (ER) | payer OTHER, SELFPAY ==
[2022-11-04 14:37] VITALS: BP 130/68; PULSE 110; RESP 16; TEMP 38.8; O2SAT 100
[2022-11-04 14:38] VITALS: BP 130/68; PULSE 110; RESP 16; TEMP 38.8; O2SAT 100
[2022-11-04 15:04] VITALS: TEMP 38.3
[2022-11-04] MEDS: ACETAMINOPHEN 500 MG TABLET 1000 MG PO (15:04)
--- NOTE | 2022-11-04 15:04 | ED.GENADULT ---
HPI - General Adult General Chief complaint: Fever Stated complaint: chills,fever,sweating Time Seen by Provider: 11/04/22 14:55 Source: patient, RN notes reviewed and old records reviewed Mode of arrival: ambulatory Limitations: no limitations History of Present Illness HPI narrative: 31-year-old female presents to the [facility] with feeling feverish, sweating, chills for the last 2 nights. Woke up this morning with a sore throat. Took some DayQuil this morning. No other treatment prior to arrival. Also reports generalized body aches. Denies any chest pain, shortness of breath, pain. Urinary symptoms Onset (ago): day(s) (2) Related Data Allergies Allergy/AdvReac Type Severity Reaction Status Date / Time No Known Allergies Allergy Unknown Verified 11/04/22 14:38 Review of Systems Review of Systems: All systems reviewed & are unremarkable except as noted in HPI and below Constitutional: Constitutional: Reports no additional constitutional complaints Eyes: Eyes: Reports no additional eye complaints ENT: Reports as per HPI and Reports sore throat Cardiovascular: Cardiovascular: Reports no additional cardiovascular complaints, Denies chest pain and Denies dyspnea Respiratory: Respiratory: Reports no additional respiratory complaints, Denies chest congestion, Denies cough and Denies dyspnea Gastrointestinal: Gastrointestinal: Reports no additional gastrointestinal complaints, Denies abdominal pain, Denies nausea and Denies vomiting Musculoskeletal: Musculoskeletal: Reports no additional musculoskeletal complaints Integumentary/Breasts: Skin/Breast: Reports system reviewed and no additional complaints, except as docu Neurologic: Reports system reviewed and no additional complaints, except as documented Psychiatric: Psychiatric: Reports no additional psychiatric complaints Allergic/Immunologic: Allergic/Immunologic: Reports no additional allergic/immunologic complaints [facility] Past Medical History Medical History Anemia Surgical History Surgical History History of umbilical hernia repair 02/27/22 Social History Social History Smoking status: Never smoker Alcohol intake: never Substance use: never Living arrangements: with family Gender identity (if verbalized by the patient): Female Sexual Orientation (if Verbalized by the Patient): Straight or Heterosexual Spiritual care concerns: No Comments At the time of my signature, I reviewed and agree with the nursing past medical, surgical, social, and family history. There is no relevant family history pertinent to the patient complaint. Exam Const: General: cooperative, healthy appearing, comfortable, no acute distress, well developed, alert and well nourished Nutritional Appearance: well nourished Orientation/consciousness: patient oriented x3 Limitations: no limitations HENMT: Head: normal to inspection Ears: hearing grossly normal bilaterally and external ears normal Face/Nose/Sinus: Normal external nose present, Normal nares present, Normal nasal mucous membranes and turbinates present and normal facial exam Face and sinus: normal facial exam Mouth: Yes Normal oral and palatal mucosa present, Yes lip normal and Yes moist mucous membranes Throat: uvula midline, posterior oropharynx abnormal erythema and no uvular edema Eyes: General: appearance normal, both eyes and all related structures Alignment and Position: alignment normal Periorbital: periorbital findings normal Pupils: Equal, round and reactive pupils present EOM: EOMs intact bilaterally Neck: Neck: normal visual inspection, full ROM, no meningeal signs and lymphadenopathy (Bilateral submandibular) Chest: Chest palpation & inspection: normal inspection of the chest Resp: Effort & Inspection: normal respiratory effort an
== END 2022-11-04 15:12 | disposition home or self-care (01) ==
PROVIDERS: Emergency Provider Nurse Practitioner; PCP Registered Nurse
DX: J02.0 Streptococcal pharyngitis (principal)
CPT/HCPCS: 87880; 99213; A9270; G0463